=== PATIENT | female | born 1940 | race Caucasian/White ===

== ENCOUNTER 2017-04-04 08:33 | Outpatient (CLI) | payer OTHER ==
[~2017-04-04] VITALS: Ht 152.4 cm; Wt 40.8 kg
[~2017-04-04 08:33] MED LIST: AVAPRO150 MG; AVAPRO150 MG PO; COZAAR50 MG PO; FOSAMAX70 MG PO; MECLIZINE HCL25 MG; RANITIDINE HCL300 M1 PO; SIMVASTATIN40 MG PO; SIMVASTATIN5 MG; SYNVASTATIN; TESSALON PERLE100 M1 PO; TUSSI PRES-B L120 M1 PO; VERAPAMIL ER100 MG; VERAPAMIL ER100 MG PO; VERAPAMIL ER200 MG PO; VERAPAMIL HCL180 M1 PO; ZITHROMAX TRI-500 MG PO
== END 2017-04-04 08:50 | disposition home or self-care (01) ==
LOC: OFIC 805 08:33
DX: H61.23 Impacted cerumen, bilateral (principal); H90.6 Mixed conductive and sensorineural hearing loss, bilateral; H70.13 Chronic mastoiditis, bilateral; J31.0 Chronic rhinitis

== ENCOUNTER 2017-07-11 08:27 | Outpatient (CLI) | payer OTHER ==
[~2017-07-11] VITALS: Ht 152.4 cm; Wt 43.1 kg
== END 2017-07-11 08:50 | disposition home or self-care (01) ==
LOC: OFIC 805 08:27
DX: H70.13 Chronic mastoiditis, bilateral (principal); H69.82 Other specified disorders of Eustachian tube, left ear; H61.23 Impacted cerumen, bilateral; H90.72 Mixed conductive and sensorineural hearing loss, unilateral, left ear, with unrestricted hearing on the contralateral side

== ENCOUNTER 2017-07-17 09:26 | Outpatient (CLI) | payer OTHER | END 2017-07-17 09:31 | disposition home or self-care (01) | LOC: RAD 09:26 | DX: J45.998 Other asthma (principal) ==

== ENCOUNTER 2017-08-01 08:14 | Outpatient (CLI) | payer OTHER ==
[~2017-08-01] VITALS: Ht 152.4 cm; Wt 42.2 kg
== END 2017-08-01 08:30 | disposition home or self-care (01) ==
LOC: OFIC 805 08:14
DX: H70.13 Chronic mastoiditis, bilateral (principal); H69.82 Other specified disorders of Eustachian tube, left ear; J31.0 Chronic rhinitis

== ENCOUNTER 2017-10-28 12:05 | Outpatient (CLI) | payer OTHER | END 2017-10-28 15:29 | disposition home or self-care (01) | LOC: RAD 12:05 | DX: J45.998 Other asthma (principal) ==

== ENCOUNTER 2017-12-20 09:28 | Emergency (ER) | payer OTHER ==
[~2017-12-20] VITALS: Ht 149.9 cm; Wt 42.6 kg
[2017-12-20] MEDS ORDERED: ZANTAC150 MG (10:25)
== END 2017-12-20 13:31 | disposition home or self-care (01) ==
LOC: ER 09:28
DX: S33.5XXA Sprain of ligaments of lumbar spine, initial encounter (principal); X50.0XXA Overexertion from strenuous movement or load, initial encounter; Y93.F2 Activity, caregiving, lifting; Y92.89 Other specified places as the place of occurrence of the external cause; Y99.8 Other external cause status

== ENCOUNTER 2018-01-05 09:51 | Outpatient (CLI) | payer OTHER ==
[~2018-01-05 09:51] MED LIST changes: +ZANTAC150 MG
== END 2018-01-05 09:59 | disposition home or self-care (01) ==
LOC: TOM 09:51
DX: R91.1 Solitary pulmonary nodule (principal)

== ENCOUNTER 2018-02-06 09:56 | Outpatient (CLI) | payer OTHER ==
[~2018-02-06] VITALS: Ht 152.4 cm; Wt 43.1 kg
[2018-02-18] MEDS ORDERED: MECLIZINE HCL25 M1 (17:49)
[2018-02-18] MEDS ORDERED: SIMVASTATIN40 MG (17:49)
== END 2018-02-06 14:26 | disposition home or self-care (01) ==
LOC: OFIC 805 09:56
DX: H90.6 Mixed conductive and sensorineural hearing loss, bilateral (principal); H70.13 Chronic mastoiditis, bilateral; J31.0 Chronic rhinitis; H69.83 Other specified disorders of Eustachian tube, bilateral; H61.23 Impacted cerumen, bilateral; R42 Dizziness and giddiness

== ENCOUNTER 2018-04-24 08:59 | Outpatient (CLI) | payer OTHER ==
[~2018-04-24] VITALS: Ht 152.4 cm; Wt 42.6 kg
[~2018-04-24 08:59] MED LIST changes: +MECLIZINE HCL25 M1; +SIMVASTATIN40 MG
== END 2018-04-24 09:15 | disposition home or self-care (01) ==
LOC: OFIC 805 08:59
DX: H90.6 Mixed conductive and sensorineural hearing loss, bilateral (principal); H70.13 Chronic mastoiditis, bilateral; H61.23 Impacted cerumen, bilateral

== ENCOUNTER 2018-06-26 21:16 | Emergency (ER) | payer OTHER ==
[~2018-06-26] VITALS: Ht 152.4 cm; Wt 49.9 kg
== END 2018-06-27 02:51 | disposition home or self-care (01) ==
LOC: ER 21:16
DX: R07.89 Other chest pain (principal)

== ENCOUNTER 2019-04-18 08:24 | Emergency (ER) | payer OTHER ==
[~2019-04-18] VITALS: Ht 147.3 cm; Wt 43.1 kg
[2019-04-18] MEDS ORDERED: MICROZIDE12.5 MG (08:38)
== END 2019-04-18 13:26 | disposition home or self-care (01) ==
LOC: ER 08:24
DX: R07.89 Other chest pain (principal)

== ENCOUNTER 2019-08-18 08:31 | Outpatient (CLI) | payer OTHER ==
[~2019-08-18 08:31] MED LIST changes: +MICROZIDE12.5 MG
[2019-08-18] MEDS ORDERED: CIPRODEX OTIC7.5 ML OT (10:37)
== END 2019-08-18 11:18 | disposition home or self-care (01) ==
LOC: OFIC 805 08:31
DX: H71.13 Cholesteatoma of tympanum, bilateral (principal); H70.13 Chronic mastoiditis, bilateral; H90.6 Mixed conductive and sensorineural hearing loss, bilateral; H61.23 Impacted cerumen, bilateral

== ENCOUNTER → 2019-09-28 | Outpatient (CLI) | payer OTHER ==
[~2019-09-28] MED LIST changes: +CIPRODEX OTIC7.5 ML OT
== END | disposition home or self-care (01) ==
LOC: OFIC 805 09:14
PROVIDERS: ATTEND Otolaryngology
DX: H90.6 Mixed conductive and sensorineural hearing loss, bilateral (principal); H71.13 Cholesteatoma of tympanum, bilateral; J31.0 Chronic rhinitis

== ENCOUNTER 2019-10-18 08:27 | Emergency (ER) | payer OTHER ==
[~2019-10-18] VITALS: Ht 152.4 cm; Wt 42.6 kg
[2019-10-18] MEDS ORDERED: XOPENEX0.63 MG/3 (08:39)
[2019-10-18] MEDS ORDERED: LOSARTAN POTASS25 MG (08:40)
[2019-10-18] MEDS ORDERED: FLONASE16 GM (08:40)
[2019-10-18] MEDS ORDERED: HYDROCHLOROTH12.5 MG (08:40)
[2019-10-18] MEDS ORDERED: DURACHOL 3,7751 EACH (08:41)
[2019-10-18] MEDS ORDERED: LIPO-FLAVONOID1 EACH (08:41)
[2019-10-18] MEDS ORDERED: FOLIC ACID0.8 MG (08:42)
[2019-10-18] MEDS ORDERED: B12 ACTIVE1000 MCG (08:42)
[2019-10-18] MEDS ORDERED: VISTARIL25 MG (08:43)
[2019-10-18] MEDS ORDERED: GRALISE600 MG (08:43)
[2019-10-18] MEDS ORDERED: PRAVASTATIN SOD20 MG (08:44)
[2019-10-18] MEDS ORDERED: RISEDRONATE SOD35 M1 (08:44)
[2019-10-18] MEDS ORDERED: ZITHROMAX200 MG PO (11:02)
== END 2019-10-18 12:12 | disposition home or self-care (01) ==
LOC: ER 08:27
DX: B34.9 Viral infection, unspecified (principal); Z03.818 Encounter for observation for suspected exposure to other biological agents ruled out

== ENCOUNTER 2019-11-04 10:16 | Outpatient (CLI) | payer OTHER ==
[~2019-11-04 10:16] MED LIST changes: +B12 ACTIVE1000 MCG; +DURACHOL 3,7751 EACH; +FLONASE16 GM; +FOLIC ACID0.8 MG; +GRALISE600 MG; +HYDROCHLOROTH12.5 MG; +LIPO-FLAVONOID1 EACH; +LOSARTAN POTASS25 MG; +PRAVASTATIN SOD20 MG; +RISEDRONATE SOD35 M1; +VISTARIL25 MG; +XOPENEX0.63 MG/3; +ZITHROMAX200 MG PO
== END 2019-11-04 19:00 | disposition home or self-care (01) ==
LOC: OFIC 805 10:16
PROVIDERS: ATTEND Otolaryngology
DX: H90.6 Mixed conductive and sensorineural hearing loss, bilateral (principal); J31.0 Chronic rhinitis; H61.22 Impacted cerumen, left ear; M27.2 Inflammatory conditions of jaws

== ENCOUNTER 2019-12-09 11:12 | Outpatient (CLI) | payer OTHER | END 2019-12-09 15:47 | disposition home or self-care (01) | LOC: OFIC 805 11:12 | PROVIDERS: ATTEND Otolaryngology | DX: M27.2 Inflammatory conditions of jaws (principal); H61.22 Impacted cerumen, left ear ==

== ENCOUNTER 2019-12-24 11:02 | Emergency (ER) | payer OTHER ==
[~2019-12-24] VITALS: Ht 152.4 cm; Wt 44.5 kg
[2019-12-24] MEDS ORDERED: ZITHROMAX200 MG PO (15:39)
== END 2019-12-24 19:10 | disposition home or self-care (01) ==
LOC: ER 11:02
DX: M54.2 Cervicalgia (principal); B96.0 Mycoplasma pneumoniae [M. pneumoniae] as the cause of diseases classified elsewhere

== ENCOUNTER → 2020-03-07 | Outpatient (CLI) | payer OTHER | END | disposition home or self-care (01) | LOC: OFIC 805 11:00 | PROVIDERS: ATTEND Otolaryngology | DX: H90.6 Mixed conductive and sensorineural hearing loss, bilateral (principal); H61.22 Impacted cerumen, left ear; H71.12 Cholesteatoma of tympanum, left ear ==

== ENCOUNTER 2020-03-28 08:02 | Emergency (ER) | payer OTHER ==
[~2020-03-28] VITALS: Ht 144.8 cm; Wt 44.5 kg
[2020-03-28] MEDS ORDERED: MONTELUKAST SOD10 MG PO (08:22)
[2020-03-28] MEDS ORDERED: PEPCID AC20 MG PO (12:23)
== END 2020-03-28 12:41 | disposition home or self-care (01) ==
LOC: ER 08:02
DX: R10.13 Epigastric pain (principal); Z03.818 Encounter for observation for suspected exposure to other biological agents ruled out

== ENCOUNTER 2020-04-20 12:12 | Outpatient (CLI) | payer OTHER ==
[~2020-04-20 12:12] MED LIST changes: +MONTELUKAST SOD10 MG PO; +PEPCID AC20 MG PO
== END 2020-04-20 13:00 | disposition home or self-care (01) ==
LOC: RAD 12:12
PROVIDERS: ATTEND Specialist
DX: J45.998 Other asthma (principal); M16.0 Bilateral primary osteoarthritis of hip

== ENCOUNTER 2020-05-06 06:25 | Emergency (ER) | payer OTHER ==
[~2020-05-06] VITALS: Ht 152.4 cm; Wt 44.5 kg
== END 2020-05-06 13:20 | disposition home or self-care (01) ==
LOC: ER 06:25
DX: K65.4 Sclerosing mesenteritis (principal); A09 Infectious gastroenteritis and colitis, unspecified; B96.0 Mycoplasma pneumoniae [M. pneumoniae] as the cause of diseases classified elsewhere; R10.32 Left lower quadrant pain; Z03.818 Encounter for observation for suspected exposure to other biological agents ruled out

== ENCOUNTER 2020-05-09 20:51 | Emergency (ER) | payer OTHER ==
[~2020-05-09] VITALS: Ht 152.4 cm; Wt 44.5 kg
[2020-05-09] MEDS ORDERED: ACETAMINOPHEN (21:28)
== END 2020-05-09 23:50 | disposition home or self-care (01) ==
LOC: ER 20:51
DX: K29.60 Other gastritis without bleeding (principal)

== ENCOUNTER 2021-12-20 07:40 | Outpatient (CLI) | payer OTHER ==
[~2021-12-20 07:40] MED LIST changes: +ACETAMINOPHEN
== END 2021-12-20 07:43 | disposition home or self-care (01) ==
LOC: NUCLEAR 07:40
PROVIDERS: ATTEND Internal Medicine Pulmonary Disease
DX: R91.8 Other nonspecific abnormal finding of lung field (principal); Z91.013 Allergy to seafood; Z88.6 Allergy status to analgesic agent
CPT/HCPCS: 78816; A9552